=== PATIENT | male | born 1990 | race Two or more races ===

== ENCOUNTER 2022-09-05 07:25 | Emergency (ER) | payer SELFPAY ==
[~2022-09-05] VITALS: Ht 170.2 cm; Wt 80.7 kg
--- NOTE | 2022-09-05 07:45 | NUR ---
C/O MID LOWER BACK PAIN X YESTERDAY FROM "[facility]"
--- NOTE | 2022-09-05 08:08 | NUR ---
URINE COLLECTED AND SENT TO LAB
--- NOTE | 2022-09-05 08:09 | NUR ---
PT REPORTS THAT HE HAS PAIN DURING URININATION AND A LEASION ON THE PENIS THAT CAUSES PAIN AND HAS GROWN LARGER
[2022-09-05] MEDS ORDERED: KETOROLAC TROMETHAMINE INJ 60 MG/2 ML VIAL IM ONE (08:30)
[2022-09-05] MEDS ORDERED: CYCLOBENZAPRINE 10 MG TABLET PO ONE (08:30)
[2022-09-05] MEDS ORDERED: CYCLOBENZAPRINE 10 MG TABLET ONE (08:32)
[2022-09-05] MEDS ORDERED: KETOROLAC TROMETHAMINE INJ 30 MG/ML VIAL ONE (08:32)
[2022-09-05 08:52] LABS: BILIRUBIN,URINE NEGATIVE (NEGATIVE); COLOR,URINE YELLOW (YELLOW); LEUKOCYTE ESTERASE ,URINE NEGATIVE (NEGATIVE); NITRITE, URINE NEGATIVE (NEGATIVE); PH,URINE 5.5 (5.0-8.0); PROTEIN,URINE NEGATIVE (NEGATIVE); UGLUCOSE NEGATIVE (NEGATIVE); UROBILINOGEN,URINE 0.2 EU/dL (0.2)
[2022-09-05 09:01] LABS: BACTERIA,URINE Rare /HPF (None Seen); SQUAMOUS EPITHELIAL CELL,UR Few /HPF (None Seen)
[2022-09-05 09:04] LABS: CALCIUM, SERUM 8.8 mg/dL (8.5-10.1); POTASSIUM 4.2 mmol/L (3.5-5.1)
[2022-09-05] MEDS ORDERED: IOHEXOL-300 100 ML VIAL IV ONE (09:22)
[2022-09-05] MEDS ORDERED: IV NS 0.9% 250 ML IV ONE (09:22)
[2022-09-05] MEDS ORDERED: NAPR-1164 PO (12:24)
[2022-09-05] MEDS ORDERED: LIDO30AD10 TP (12:24)
--- NOTE | 2022-09-05 12:33 | NUR ---
IV removed. Catheter intact and site benign. Pressure and 4x4 applied to site. No bleeding noted.Patient discharged to home in stable condition. Written and verbal after care instructions given. Patient verbalizes understanding of instruction.
[2022-09-05 12:35] VITALS: BP 120/72
== END 2022-09-05 12:37 | disposition home or self-care (01) ==
LOC: ER 07:35
DX: S33.5XXA Sprain of ligaments of lumbar spine, initial encounter (principal); N48.89 Other specified disorders of penis; Z60.2 Problems related to living alone; Z79.899 Other long term (current) drug therapy; X50.0XXA Overexertion from strenuous movement or load, initial encounter; Y93.89 Activity, other specified; Y92.89 Other specified places as the place of occurrence of the external cause; Y99.0 Civilian activity done for income or pay
CPT/HCPCS: 99285; 72193; 76882; 80048; 81001; 36415; 96372; J1885; J7050; Q9967